=== PATIENT | male | born 1995 | race Asian ===

== ENCOUNTER 2022-03-02 06:36 | Emergency (ER) | payer OTHER ==
[2022-03-02 07:08] VITALS: BP 143/93; PULSE 97; TEMP 98.2; BMI 27.3
== END 2022-03-02 08:41 | disposition home or self-care (01) ==
LOC: JER 06:36
DX: K06.8 Other specified disorders of gingiva and edentulous alveolar ridge (principal)
CPT/HCPCS: 99281-25